=== PATIENT | male | born 1960 | race African-American/Black ===

== ENCOUNTER 2021-10-10 02:42 | Emergency (ER) | payer MEDICARE, OTHER ==
[~2021-10-10] VITALS: Ht 177.8 cm; Wt 98.0 kg
[~2021-10-10 02:42] MED LIST: ESOM40CA PO; LOSA1TAB9 PO; LOSA50TA3 PO; METO-539 PO; POTA10TA15 PO
[2021-10-10 03:00] VITALS: BP 151/85
== END 2021-10-10 05:12 | disposition left against medical advice (07) ==
LOC: ER 02:42
DX: R07.89 Other chest pain (principal); Z53.21 Procedure and treatment not carried out due to patient leaving prior to being seen by health care provider
CPT/HCPCS: 93005